=== PATIENT | male | born 1985 | race Hispanic/Latino ===

== ENCOUNTER 2018-12-05 14:12 | Emergency (ER) | payer OTHER ==
[~2018-12-05] VITALS: Ht 175.3 cm; Wt 90.5 kg
[2018-12-05] MEDS ORDERED: LAMI1AER EX (14:21)
[2018-12-05] MEDS ORDERED: LAMI1SPR EX (14:21)
[2018-12-05] MEDS ORDERED: diphenhydrAMINE INJ 50MG/ML VIAL (J1200) IM STA (16:15)
[2018-12-05] MEDS ORDERED: predniSONE 20 MG TAB PO ONE (16:15)
[2018-12-05] MEDS ORDERED: FAMOTIDINE 20 MG TAB PO ONE (16:15)
[2018-12-05] MEDS ORDERED: PEPC1TAB5 PO (16:32)
[2018-12-05] MEDS ORDERED: PRED20TA PO (16:33)
[2018-12-05] MEDS ORDERED: BENA25CA4 PO (16:34)
[2018-12-05 17:45] VITALS: BP 116/63
--- NOTE | 2018-12-05 20:39 | ECGEPIP ---
[facility] - ED Test Date: 2018-12-05 Pat Name: ANDREW CASTRO Department: Room: - Gender: Male Ed Educational Aide: [place] : 1985 Requested By: Carine Tello Order Number: [id number] Reading MD: Carine Tello Measurements Intervals [place] Rate: 76 P: 69 [place]: 159 QRS: 29 QRSD: 81 T: 6 QT: 370 QTc: 417 Interpretive Statements SINUS RHYTHM NO PRIOR Electronically Signed on 12-05-2018 20:38:47 EDT by Carine Tello
== END 2018-12-05 17:40 | disposition home or self-care (01) ==
LOC: M ED 14:12 → EDBD 14:12 → M ED 17:40
DX: L50.9 Urticaria, unspecified (principal); Z79.899 Other long term (current) drug therapy
CPT/HCPCS: 93005; 96372; 99284; J1200